=== PATIENT | male | born 1995 | race African-American/Black ===

== ENCOUNTER 2021-03-13 15:26 | Emergency (ER) | payer MEDICAID, OTHER ==
[~2021-03-13] VITALS: Ht 185.4 cm; Wt 60.2 kg
[~2021-03-13 15:26] MED LIST: NOCURR
[2021-03-13] MEDS ORDERED: HYDROCODONE/ACETAMINOPHEN 5-325 MG TABLET PO ONE (15:45)
[2021-03-13] MEDS ORDERED: ONDANSETRON HCL 4 MG TABLET PO ONE (15:45)
[2021-03-13 15:46] VITALS: BP 132/90
== END 2021-03-13 16:20 | disposition left against medical advice (07) ==
LOC: EMS 15:32
DX: F32.9 Major depressive disorder, single episode, unspecified (principal); R11.2 Nausea with vomiting, unspecified; T42.6X5A Adverse effect of other antiepileptic and sedative-hypnotic drugs, initial encounter; V29.9XXA Motorcycle rider (driver) (passenger) injured in unspecified traffic accident, initial encounter; Y92.89 Other specified places as the place of occurrence of the external cause; Y93.89 Activity, other specified; Y99.8 Other external cause status
CPT/HCPCS: 99283; Q0162